=== PATIENT | male | born 1980 | race African-American/Black ===

== ENCOUNTER 2020-05-10 16:05 | Emergency (ER) | payer OTHER ==
[~2020-05-10] VITALS: Ht 160 cm; Wt 59.0 kg
[2020-05-10 18:24] VITALS: BP 126/76; TEMP 98
== END 2020-05-10 18:25 | disposition home or self-care (01) ==
LOC: ED 16:05
PROC: 0HCGXZZ Extirpation of Matter from Left Hand Skin, External Approach (ICD-10-PCS; principal; 2020-05-10)
DX: S61.042A Puncture wound with foreign body of left thumb without damage to nail, initial encounter (principal); W26.8XXA Contact with other sharp object(s), not elsewhere classified, initial encounter; Y92.89 Other specified places as the place of occurrence of the external cause
CPT/HCPCS: 90471; 90715; 96372; 99283; J0690; J2001